=== PATIENT | female | born 1965 | race Caucasian/White ===

== ENCOUNTER 2016-11-28 12:30 | Inpatient (IN) ==
[2016-11-28] MEDS ORDERED: MORPHINE 2 MG/1 ML SYRINGE IV STA (13:33)
[2016-11-28] MEDS ORDERED: SODIUM CHLORIDE 0.9% 1,000 ML IV STA (13:33)
[2016-11-28] MEDS ORDERED: MORPHINE 2 MG/1 ML SYRINGE ONE ×2 (13:53→15:45)
[2016-11-28] MEDS ORDERED: ONDANSETRON 4 MG/2 ML VIAL ONE (13:53)
[2016-11-28 13:58] LABS: Basophils % 0.4 % (0.0-0.8); Eosinophils # 0.1 10*3/uL (0.0-0.87); Eosinophils % 1.3 % (0.00-10.9); Hematocrit 45.2 VOL% (35.7-47.0); Immature Granulocytes % 0.3 %; Immature Granulocytes Absolute 0.03 #; Lymphocytes # 1.9 10*3/uL (1.4-4.0); Lymphocytes % 21.5 % (21.3-54.2); Mean Corpuscular HGB Conc 35.4 GM/DL (32-36); Mean Corpuscular Hemoglobin 32 PG (27-34); Mean Corpuscular Volume 91.3 FL (87-102); Mean Platelet Volume 10.6 FL (9.6-12.0); Monocytes # 0.6 10*3/uL (0.11-0.8); Monocytes % 7.2 % (1.7-12.7); Neutrophils # 6.2 10*3/uL (1.4-7.4); Neutrophils % 69.3 % (38.7-73.9); Platelet Count 185 T/CUMM (130-400); Red Blood Count 4.95 MC/CUMM (3.8-5.5); Red Cell Distribution Width 12.1 % (9.3-17.3)
[2016-11-28] MEDS ORDERED: ONDANSETRON 4 MG/2 ML VIAL IV STA (14:06)
[2016-11-28 14:26] LABS: Alanine Aminotransferase 51 U/L (13-56); Albumin 3.7 G/DL (3.4-5.0); Alkaline Phosphatase 77 U/L (45-117); Aspartate Amino Transferase 50 U/L (0-37); Bilirubin,Total < 0.39 MG/DL (0.2-1.0); Blood Urea Nitrogen 6 MG/DL (7-18); Calcium 9.8 MG/DL (8.5-10.1); Glucose 80 MG/DL (74-106); Potassium 4.7 MMOL/L (3.5-5.1); Sodium 136 MMOL/L (136-145); Total Protein 8.2 G/DL (6.4-8.3)
[2016-11-28] MEDS ORDERED: PIPERACILLIN/TAZOBACTAM 3,375 MG in SODIUM CHLORIDE 0.9% 100 ML IV STA (15:49)
[2016-11-28] MEDS ORDERED: VANCOMYCIN INJ 1,000 MG in SODIUM CHLORIDE 0.9% 250 ML IV STA (15:49)
[2016-11-28] MEDS ORDERED: VANCOMYCIN 1,000 MG VIAL ONE (15:57)
[2016-11-28] MEDS ORDERED: PIPERACILLIN/TAZOBACTAM 3,375 MG VIAL IV ONE (17:24)
[2016-11-28] MEDS ORDERED: HYDROmorphone 2 MG/1 ML VIAL ONE (17:49)
[2016-11-28] MEDS: HYDROmorphone 2 MG/1 ML VIAL IV PRN (17:52)
[2016-11-28] MEDS: DEXTROSE 5% NACL 0.45% 1,000 ML IV SCH (19:15)
[2016-11-28] MEDS: metroNIDAZOLE INJ 500 MG in PREMIX 1 EACH IV SCH (19:16)
[2016-11-29] MEDS: ONDANSETRON 4 MG/2 ML VIAL IV PRN ×2 (03:00→08:50)
[2016-11-29] MEDS: DEXTROSE 5% NACL 0.45% 1,000 ML IV SCH (03:21)
[2016-11-29] MEDS: metroNIDAZOLE INJ 500 MG in PREMIX 1 EACH IV SCH ×3 (03:21→17:40)
[2016-11-29] MEDS: PIPERACILLIN/TAZOBACTAM 3,375 MG in SODIUM CHLORIDE 0.9% 100 ML IV SCH ×3 (03:30→18:12)
[2016-11-29 07:48] LABS: Basophils % 0.7 % (0.0-0.8); Eosinophils # 0.1 10*3/uL (0.0-0.87); Eosinophils % 1.9 % (0.00-10.9); Hematocrit 40.6 VOL% (35.7-47.0); Hemoglobin 14.2 GM/DL (12.0-16.0); Immature Granulocytes % 0.2 %; Immature Granulocytes Absolute 0.01 #; Lymphocytes # 1.7 10*3/uL (1.4-4.0); Lymphocytes % 29.7 % (21.3-54.2); Mean Corpuscular Hemoglobin 32 PG (27-34); Mean Corpuscular Volume 92.7 FL (87-102); Mean Platelet Volume 10.9 FL (9.6-12.0); Monocytes # 0.5 10*3/uL (0.11-0.8); Monocytes % 8.9 % (1.7-12.7); Neutrophils # 3.4 10*3/uL (1.4-7.4); Neutrophils % 58.6 % (38.7-73.9); Platelet Count 151 T/CUMM (130-400); Red Blood Count 4.38 MC/CUMM (3.8-5.5); Red Cell Distribution Width 12.1 % (9.3-17.3); White Blood Count 5.9 T/CUMM (4-12)
[2016-11-29 08:19] LABS: Magnesium 1.6 MG/DL (1.8-2.4); Osmolality,Calculated 273.5 MOS/KG (273-304)
[2016-11-29] MEDS: HYDROmorphone 2 MG/1 ML VIAL IV PRN ×2 (08:47→22:21)
[2016-11-29 18:26] LABS: Apearance,Urine Slightly Hazy (Clear); Bilirubin,Urine Negative (Negative); Blood, Urine Negative (Negative); Glucose,Urine (UA) Negative (Negative); Ketones,Urine 20 mg/dL (Negative); Mucus,Urine Occasional /LPF (Occasional); Nitrite,Urine Negative (Negative); Protein,Urine Negative; RBC,Urine 1 /HPF (0-4); Squamous Epithelial Cell,Urine Occasional /HPF (0-10); Urine Color Yellow (Yellow); Urine Urobilinogen < 2.0 EU/DL (0.2-1.0); WBC,Urine 55 /HPF (0-6)
[2016-11-29] MEDS: PARoxetine 20 MG TABLET PO SCH (21:57)
[2016-11-30] MEDS: DEXTROSE 5% NACL 0.45% 1,000 ML IV SCH ×4 (01:12→16:33)
[2016-11-30] MEDS: metroNIDAZOLE INJ 500 MG in PREMIX 1 EACH IV SCH ×3 (01:37→18:10)
[2016-11-30] MEDS: PIPERACILLIN/TAZOBACTAM 3,375 MG in SODIUM CHLORIDE 0.9% 100 ML IV SCH ×3 (03:00→20:52)
[2016-11-30 03:45] LABS: Basophils % 0.4 % (0.0-0.8); Eosinophils % 0.7 % (0.00-10.9); Hematocrit 38.6 VOL% (35.7-47.0); Hemoglobin 13.2 GM/DL (12.0-16.0); Immature Granulocytes % 0.4 %; Immature Granulocytes Absolute 0.02 #; Lymphocytes # 1.1 10*3/uL (1.4-4.0); Mean Corpuscular HGB Conc 34.2 GM/DL (32-36); Mean Corpuscular Hemoglobin 32 PG (27-34); Mean Corpuscular Volume 92.8 FL (87-102); Mean Platelet Volume 11.4 FL (9.6-12.0); Monocytes # 0.5 10*3/uL (0.11-0.8); Monocytes % 9.6 % (1.7-12.7); Neutrophils # 3.9 10*3/uL (1.4-7.4); Neutrophils % 69.9 % (38.7-73.9); Platelet Count 146 T/CUMM (130-400); Red Blood Count 4.16 MC/CUMM (3.8-5.5); Red Cell Distribution Width 12.2 % (9.3-17.3); White Blood Count 5.5 T/CUMM (4-12)
[2016-11-30 04:00] LABS: Calcium 9.1 MG/DL (8.5-10.1); Magnesium 1.7 MG/DL (1.8-2.4); Osmolality,Calculated 275.5 MOS/KG (273-304); Potassium 3.6 MMOL/L (3.5-5.1)
[2016-11-30 04:12] LABS: Free T4 (Free Thyroxine) 1.22 NG/DL (0.76-1.46); Risk Ratio 3.09; Thyroid Stimulating Hormone 5.87 uIU/ml (0.358-3.74); VLDL CHOLESTEROL 10.2 MG/DL
[2016-11-30] MEDS ORDERED: MAGNESIUM SULF RIDER 1 GM in PREMIX 1 EACH IV ONE (09:15)
[2016-11-30] MEDS: PARoxetine 20 MG TABLET PO SCH (12:38)
[2016-12-01] MEDS: metroNIDAZOLE INJ 500 MG in PREMIX 1 EACH IV SCH ×3 (03:08→17:44)
[2016-12-01 03:42] LABS: Basophils % 0.6 % (0.0-0.8); Eosinophils # 0.1 10*3/uL (0.0-0.87); Eosinophils % 2.6 % (0.00-10.9); Hematocrit 40.4 VOL% (35.7-47.0); Immature Granulocytes % 0.2 %; Immature Granulocytes Absolute 0.01 #; Lymphocytes # 1.6 10*3/uL (1.4-4.0); Lymphocytes % 32.6 % (21.3-54.2); Mean Corpuscular HGB Conc 34.7 GM/DL (32-36); Mean Corpuscular Hemoglobin 32 PG (27-34); Mean Corpuscular Volume 92.4 FL (87-102); Mean Platelet Volume 11.4 FL (9.6-12.0); Monocytes # 0.5 10*3/uL (0.11-0.8); Monocytes % 9.6 % (1.7-12.7); Neutrophils # 2.7 10*3/uL (1.4-7.4); Neutrophils % 54.4 % (38.7-73.9); Platelet Count 164 T/CUMM (130-400); Red Blood Count 4.37 MC/CUMM (3.8-5.5); Red Cell Distribution Width 12.3 % (9.3-17.3)
[2016-12-01] MEDS: DEXTROSE 5% NACL 0.45% 1,000 ML IV SCH ×3 (03:54→15:19)
[2016-12-01 04:20] LABS: Calcium 8.9 MG/DL (8.5-10.1); Magnesium 1.7 MG/DL (1.8-2.4); Potassium 3.5 MMOL/L (3.5-5.1)
[2016-12-01] MEDS: PIPERACILLIN/TAZOBACTAM 3,375 MG in SODIUM CHLORIDE 0.9% 100 ML IV SCH ×3 (05:38→21:00)
[2016-12-01] MEDS: PARoxetine 20 MG TABLET PO SCH (11:33)
[2016-12-01] MEDS: MAGNESIUM OXIDE 400 MG TABLET PO SCH (12:55)
[2016-12-01] MEDS ORDERED: BISOPROLOL 5 MG TABLET PO SCH (13:00)
[2016-12-01] MEDS: BISOPROLOL/HCTZ 5-6.25 MG TABLET PO SCH (21:01)
[2016-12-02] MEDS: DEXTROSE 5% NACL 0.45% 1,000 ML IV SCH (00:14)
[2016-12-02] MEDS: metroNIDAZOLE INJ 500 MG in PREMIX 1 EACH IV SCH ×2 (01:50→09:38)
[2016-12-02] MEDS: PIPERACILLIN/TAZOBACTAM 3,375 MG in SODIUM CHLORIDE 0.9% 100 ML IV SCH ×2 (03:34→11:07)
[2016-12-02] MEDS ORDERED: DEXTROSE 5% NACL 0.45% 1,000 ML IV SCH ×2 (04:30→09:30)
[2016-12-02 04:59] LABS: Basophils % 0.6 % (0.0-0.8); Eosinophils # 0.1 10*3/uL (0.0-0.87); Eosinophils % 2.2 % (0.00-10.9); Hematocrit 41.8 VOL% (35.7-47.0); Hemoglobin 14.5 GM/DL (12.0-16.0); Immature Granulocytes % 0.4 %; Immature Granulocytes Absolute 0.02 #; Lymphocytes # 1.9 10*3/uL (1.4-4.0); Lymphocytes % 36.8 % (21.3-54.2); Mean Corpuscular HGB Conc 34.7 GM/DL (32-36); Mean Corpuscular Hemoglobin 32 PG (27-34); Mean Corpuscular Volume 92.3 FL (87-102); Mean Platelet Volume 11.4 FL (9.6-12.0); Monocytes # 0.6 10*3/uL (0.11-0.8); Monocytes % 10.9 % (1.7-12.7); Neutrophils # 2.5 10*3/uL (1.4-7.4); Neutrophils % 49.1 % (38.7-73.9); Platelet Count 189 T/CUMM (130-400); Red Blood Count 4.53 MC/CUMM (3.8-5.5); Red Cell Distribution Width 12.4 % (9.3-17.3); White Blood Count 5.1 T/CUMM (4-12)
[2016-12-02 05:29] LABS: Calcium 9.5 MG/DL (8.5-10.1); Magnesium 1.7 MG/DL (1.8-2.4); Osmolality,Calculated 278.3 MOS/KG (273-304); Potassium 3.7 MMOL/L (3.5-5.1)
[2016-12-02] MEDS: MAGNESIUM OXIDE 400 MG TABLET PO SCH (08:10)
[2016-12-02] MEDS ORDERED: PARoxetine 20 MG TABLET PO SCH (12:00)
[2016-12-02] MEDS ORDERED: MAGNESIUM OXIDE 400 MG TABLET PO SCH (13:32)
[2016-12-02] MEDS: BISOPROLOL/HCTZ 5-6.25 MG TABLET PO SCH (21:07)
[2016-12-02] MEDS: CIPROFLOXACIN 500 MG TABLET PO SCH (21:07)
[2016-12-02] MEDS: metroNIDAZOLE 500 MG TABLET PO SCH (21:13)
[2016-12-03 05:36] LABS: Basophils % 0.6 % (0.0-0.8); Eosinophils # 0.1 10*3/uL (0.0-0.87); Eosinophils % 2.6 % (0.00-10.9); Hematocrit 42.6 VOL% (35.7-47.0); Immature Granulocytes % 0.2 %; Immature Granulocytes Absolute 0.01 #; Lymphocytes # 1.9 10*3/uL (1.4-4.0); Lymphocytes % 34.4 % (21.3-54.2); Mean Corpuscular HGB Conc 35.2 GM/DL (32-36); Mean Corpuscular Hemoglobin 32 PG (27-34); Mean Corpuscular Volume 91.6 FL (87-102); Mean Platelet Volume 11.8 FL (9.6-12.0); Monocytes # 0.6 10*3/uL (0.11-0.8); Monocytes % 11.3 % (1.7-12.7); Neutrophils # 2.7 10*3/uL (1.4-7.4); Neutrophils % 50.9 % (38.7-73.9); Platelet Count 171 T/CUMM (130-400); Red Blood Count 4.65 MC/CUMM (3.8-5.5); Red Cell Distribution Width 12.3 % (9.3-17.3); White Blood Count 5.4 T/CUMM (4-12)
[2016-12-03 06:07] LABS: Calcium 9.6 MG/DL (8.5-10.1); Magnesium 1.6 MG/DL (1.8-2.4); Osmolality,Calculated 280.1 MOS/KG (273-304); Potassium 3.6 MMOL/L (3.5-5.1)
[2016-12-03] MEDS: CIPROFLOXACIN 500 MG TABLET PO SCH (08:39)
[2016-12-03] MEDS: metroNIDAZOLE 500 MG TABLET PO SCH (08:39)
[2016-12-03 10:46] VITALS: BP 124/67
== END 2016-12-03 12:28 | disposition home or self-care (01) | DRG 392 ==
LOC: N.ED 12:30 → N.EDINP 16:27 → N.3E 17:55
PROVIDERS: ADMIT Surgery; ATTEND Specialist

== ENCOUNTER 2017-04-17 08:09 | Inpatient (IN) ==
[2017-04-15 13:59] LABS: Basophils % 0.3 % (0.0-0.8); Hematocrit 43.2 VOL% (35.7-47.0); Hemoglobin 15.1 GM/DL (12.0-16.0); Immature Granulocytes % 0.3 %; Immature Granulocytes Absolute 0.03 #; Lymphocytes # 1.1 10*3/uL (1.4-4.0); Lymphocytes % 13.1 % (21.3-54.2); Mean Corpuscular Hemoglobin 34 PG (27-34); Mean Corpuscular Volume 96.6 FL (87-102); Mean Platelet Volume 10.2 FL (9.6-12.0); Monocytes # 0.5 10*3/uL (0.11-0.8); Monocytes % 5.4 % (1.7-12.7); Neutrophils # 7.1 10*3/uL (1.4-7.4); Neutrophils % 80.9 % (38.7-73.9); Platelet Count 174 T/CUMM (130-400); Red Blood Count 4.47 MC/CUMM (3.8-5.5); Red Cell Distribution Width 12.7 % (9.3-17.3); White Blood Count 8.7 T/CUMM (4-12)
[2017-04-15 14:33] LABS: Albumin 3.4 G/DL (3.4-5.0); Bilirubin,Total 0.7 MG/DL (0.2-1.0); Calcium 9.2 MG/DL (8.5-10.1); Osmolality,Calculated 272.8 MOS/KG (273-304); Potassium 3.9 MMOL/L (3.5-5.1)
[2017-04-17] MEDS ORDERED: ASPIRIN 325 MG TABLET PO STA (09:01)
[2017-04-17] MEDS ORDERED: NITROGLYCERIN SL 0.4 MG TABLET SL PRN (09:01)
[2017-04-17] MEDS ORDERED: ASPIRIN 325 MG TABLET ONE (09:25)
[2017-04-17] MEDS ORDERED: NITROGLYCERIN SL 0.4 MG TABLET SL ONE (09:25)
[2017-04-17 09:30] LABS: Basophils # 0.1 10*3/uL (0.0-0.2); Basophils % 0.8 % (0.0-0.8); Eosinophils % 0.4 % (0.00-10.9); Hematocrit 45.6 VOL% (35.7-47.0); Hemoglobin 15.7 GM/DL (12.0-16.0); Immature Granulocytes % 0.5 %; Immature Granulocytes Absolute 0.04 #; Lymphocytes # 1.6 10*3/uL (1.4-4.0); Lymphocytes % 21.3 % (21.3-54.2); Mean Corpuscular HGB Conc 34.4 GM/DL (32-36); Mean Corpuscular Hemoglobin 34 PG (27-34); Mean Corpuscular Volume 97.9 FL (87-102); Mean Platelet Volume 10.4 FL (9.6-12.0); Monocytes # 0.4 10*3/uL (0.11-0.8); Monocytes % 5.5 % (1.7-12.7); Neutrophils # 5.4 10*3/uL (1.4-7.4); Neutrophils % 71.5 % (38.7-73.9); Platelet Count 182 T/CUMM (130-400); Red Blood Count 4.66 MC/CUMM (3.8-5.5); Red Cell Distribution Width 12.5 % (9.3-17.3); White Blood Count 7.5 T/CUMM (4-12)
[2017-04-17 09:54] LABS: Calcium 9.2 MG/DL (8.5-10.1); Osmolality,Calculated 270.1 MOS/KG (273-304); Potassium 3.7 MMOL/L (3.5-5.1)
[2017-04-17 09:56] LABS: Apearance,Urine CLEAR (Clear); Bacteria,Urine Occasional /HPF (Few); Bilirubin,Urine Negative (Negative); Blood, Urine Negative (Negative); Glucose,Urine (UA) Negative (Negative); Ketones,Urine Negative (Negative); Mucus,Urine Occasional /LPF (Occasional); Nitrite,Urine Negative (Negative); Protein,Urine Negative; RBC,Urine 3 /HPF (0-4); Squamous Epithelial Cell,Urine Occasional /HPF (0-10); Urine Color Yellow (Yellow); Urine Specific Gravity 1.012 (1.001-1.035); Urine Urobilinogen < 2.0 EU/DL (0.2-1.0); WBC,Urine 9 /HPF (0-6)
[2017-04-17] MEDS ORDERED: ACETAMINOPHEN 325 MG TABLET PO PRN (10:58)
[2017-04-17] MEDS ORDERED: MORPHINE 2 MG/1 ML SYRINGE IV PRN (10:58)
[2017-04-17] MEDS ORDERED: SODIUM CHLORIDE 0.9% 1,000 ML IV SCH (11:00)
[2017-04-17] MEDS ORDERED: ALPRAZolam 0.5 MG TABLET PO PRN (12:49)
[2017-04-17] MEDS ORDERED: PARoxetine 20 MG TABLET PO SCH (13:00)
[2017-04-17 13:37] LABS: Troponin I Only < 0.015 NG/ML (0.00-0.045)
[2017-04-17] MEDS: PARoxetine 20 MG TABLET PO SCH (13:41)
[2017-04-17] MEDS: ALPRAZolam 0.5 MG TABLET PO PRN (13:52)
[2017-04-17] MEDS: ENOXAPARIN 40 MG/0.4 ML SYRINGE SUBCUT SCH (13:52)
[2017-04-17 17:27] LABS: Troponin I Only < 0.015 NG/ML (0.00-0.045)
[2017-04-17] MEDS ORDERED: BISOPROLOL 5 MG TABLET PO SCH (21:00)
[2017-04-17] MEDS ORDERED: BISOPROLOL/HCTZ 5-6.25 MG TABLET PO SCH (21:00)
[2017-04-17 21:11] LABS: Troponin I Only < 0.015 NG/ML (0.00-0.045)
[2017-04-17] MEDS: BISOPROLOL/HCTZ 5-6.25 MG TABLET PO SCH (22:21)
[2017-04-17] MEDS: DOCUSATE SODIUM 100 MG CAPSULE PO SCH (22:25)
[2017-04-18] MEDS: traZODone 50 MG TABLET PO SCH ×2 (00:01→20:58)
[2017-04-18] MEDS: ERYTHROMYCIN BASE 250 MG TABLET PO SCH ×3 (00:10→22:05)
[2017-04-18] MEDS: metroNIDAZOLE 500 MG TABLET PO SCH ×3 (00:11→22:02)
[2017-04-18 06:58] LABS: Risk Ratio 3.06; VLDL CHOLESTEROL 24.4 MG/DL
[2017-04-18] MEDS ORDERED: BISACODYL 5 MG TABLET PO ONE (09:56)
[2017-04-18] MEDS ORDERED: REGADENOSON 0.4 MG/5 ML SYRINGE IV ONE (10:19)
[2017-04-18] MEDS: PANTOPRAZOLE 40 MG TABLET PO SCH (10:34)
[2017-04-18] MEDS: PARoxetine 20 MG TABLET PO SCH (10:34)
[2017-04-18] MEDS: ASPIRIN EC 81 MG TABLET PO SCH (10:34)
[2017-04-18] MEDS: DOCUSATE SODIUM 100 MG CAPSULE PO SCH ×2 (10:34→20:58)
[2017-04-18] MEDS: ENOXAPARIN 40 MG/0.4 ML SYRINGE SUBCUT SCH (12:44)
[2017-04-18] MEDS ORDERED: POLYETHYLENE GLYCOL POWDER 255 GM BOTTLE PO ONE (15:00)
[2017-04-18] MEDS: ALPRAZolam 0.5 MG TABLET PO PRN (18:25)
[2017-04-18] MEDS: ATORVASTATIN 10 MG TABLET PO SCH (20:58)
[2017-04-18] MEDS: BISOPROLOL/HCTZ 5-6.25 MG TABLET PO SCH (20:59)
[2017-04-19] MEDS ORDERED: ERTAPENEM 1,000 MG in SODIUM CHLORIDE 0.9% 100 ML IV ONE ×2 (06:00→09:30)
[2017-04-19] MEDS ORDERED: ALVIMOPAN 12 MG CAPSULE PO ONE ×2 (06:00→10:00)
[2017-04-19 06:28] LABS: Basophils % 0.6 % (0.0-0.8); Eosinophils % 0.6 % (0.00-10.9); Hematocrit 45.6 VOL% (35.7-47.0); Hemoglobin 15.4 GM/DL (12.0-16.0); Immature Granulocytes % 0.4 %; Immature Granulocytes Absolute 0.03 #; Lymphocytes # 1.9 10*3/uL (1.4-4.0); Lymphocytes % 27.6 % (21.3-54.2); Mean Corpuscular HGB Conc 33.8 GM/DL (32-36); Mean Corpuscular Hemoglobin 33 PG (27-34); Mean Corpuscular Volume 98.3 FL (87-102); Mean Platelet Volume 10.7 FL (9.6-12.0); Monocytes # 0.4 10*3/uL (0.11-0.8); Neutrophils # 4.4 10*3/uL (1.4-7.4); Neutrophils % 64.8 % (38.7-73.9); Platelet Count 175 T/CUMM (130-400); Red Blood Count 4.64 MC/CUMM (3.8-5.5); Red Cell Distribution Width 12.5 % (9.3-17.3); White Blood Count 6.8 T/CUMM (4-12)
[2017-04-19 07:11] LABS: Albumin 3.8 G/DL (3.4-5.0); Bilirubin,Direct 0.46 MG/DL (0.0-0.20); Bilirubin,Total 1.5 MG/DL (0.2-1.0); Calcium 9.1 MG/DL (8.5-10.1); Osmolality,Calculated 271.8 MOS/KG (273-304); Potassium 3.8 MMOL/L (3.5-5.1); Total Protein 8.3 G/DL (6.4-8.3)
[2017-04-19] MEDS: DOCUSATE SODIUM 100 MG CAPSULE PO SCH (07:59)
[2017-04-19] MEDS: ASPIRIN EC 81 MG TABLET PO SCH (07:59)
[2017-04-19] MEDS: PARoxetine 20 MG TABLET PO SCH ×2 (07:59→21:03)
[2017-04-19] MEDS: PANTOPRAZOLE 40 MG TABLET PO SCH (08:00)
[2017-04-19] MEDS ORDERED: ALVIMOPAN 12 MG CAPSULE ONE (09:42)
[2017-04-19] MEDS ORDERED: TISSUE ADHESIVE 1 EACH APPLICATOR TOP ONE (11:40)
[2017-04-19] MEDS: ENOXAPARIN 40 MG/0.4 ML SYRINGE SUBCUT SCH (12:00)
[2017-04-19] MEDS ORDERED: SUGAMMADEX 200 MG/2 ML VIAL IV ONE (14:40)
[2017-04-19] MEDS ORDERED: ALBUTEROL/IPRATROPIUM 3 ML NEB RESP TX ONE (14:47)
[2017-04-19] MEDS ORDERED: LACTATED RINGERS 1,000 ML IV ONE (14:55)
[2017-04-19] MEDS ORDERED: ALBUMIN 5% 25 GM in PREMIX 1 EACH IV ONE (14:55)
[2017-04-19] MEDS ORDERED: PHENYLEPHRINE DRIP 0 MG/0 ML PREMIX IV ONE (14:55)
[2017-04-19] MEDS ORDERED: MIDAZOLAM 2 MG/2 ML VIAL ONE (15:00)
[2017-04-19] MEDS ORDERED: fentaNYL 100 MCG/2 ML VIAL ONE (15:00)
[2017-04-19] MEDS ORDERED: PROPOFOL 500 MG/50 ML BOTTLE IV ONE (15:00)
[2017-04-19] MEDS ORDERED: ROCURONIUM 100 MG/10 ML VIAL IV ONE (15:00)
[2017-04-19] MEDS ORDERED: SEVOFLURANE 1 UNIT/15 MINUTE INH ONE (15:01)
[2017-04-19] MEDS ORDERED: ONDANSETRON 4 MG/2 ML VIAL ONE ×2 (15:01→15:28)
[2017-04-19] MEDS ORDERED: ALBUMIN 5% 12.5 GM/250 ML VIAL IV ONE (15:02)
[2017-04-19 15:09] LABS: Apearance,Urine CLEAR (Clear); Bacteria,Urine Occasional /HPF (Few); Bilirubin,Urine Negative (Negative); Blood, Urine Negative (Negative); Glucose,Urine (UA) Negative (Negative); Ketones,Urine Negative (Negative); Mucus,Urine Occasional /LPF (Occasional); Nitrite,Urine Negative (Negative); Protein,Urine Negative; RBC,Urine 1 /HPF (0-4); Squamous Epithelial Cell,Urine Occasional /HPF (0-10); Urine Color Amber (Yellow); Urine Specific Gravity 1.014 (1.001-1.035); Urine Urobilinogen < 2.0 EU/DL (0.2-1.0); WBC,Urine <1 /HPF (0-6)
[2017-04-19 15:11] LABS: ABG Base Excess -3.6 MMOL/L (-2.5-2.5); ABG HCO3 22.7 MMOL/L (20-26); ABG Oxygen Saturation 96.3 % (95-100); ABG PCO2 45.8 MM HG (35-48); ABG PH 7.313 (7.35-7.45); ABG TCO2 24.1 MMOL/L (23-27); Allen Test Positive; Pt O2 Delivery Device Other
[2017-04-19 15:25] LABS: ABG Base Excess -4.4 MMOL/L (-2.5-2.5); ABG HCO3 20.8 MMOL/L (20-26); ABG Oxygen Saturation 97.7 % (95-100); ABG PCO2 44.8 MM HG (35-48); ABG TCO2 19.9 MMOL/L (23-27); Glucose Heart Surgery 167 MG/DL (74-106); Hematocrit Heart Surgery 35.5 PERCENT (37-47); Hemoglobin Heart Surgery 11.5 G/DL (12.0-16.0); Potassium Heart/CVR 3.2 MMOL/L (3.5-5.1)
[2017-04-19] MEDS ORDERED: HYDROmorphone 2 MG/1 ML VIAL ONE (15:28)
[2017-04-19] MEDS: HYDROmorphone 2 MG/1 ML VIAL IV PRN ×2 (15:30→15:40)
[2017-04-19] MEDS ORDERED: ROPIVACAINE 0.5% 30 ML VIAL ONE (16:02)
[2017-04-19] MEDS ORDERED: ONDANSETRON 4 MG/2 ML VIAL IV PRN (16:07)
[2017-04-19 16:10] LABS: Basophils % 0.4 % (0.0-0.8); Eosinophils % 0.1 % (0.00-10.9); Hematocrit 33.5 VOL% (35.7-47.0); Hemoglobin 11.2 GM/DL (12.0-16.0); Immature Granulocytes % 0.4 %; Immature Granulocytes Absolute 0.03 #; Lymphocytes # 1.1 10*3/uL (1.4-4.0); Lymphocytes % 13.1 % (21.3-54.2); Mean Corpuscular HGB Conc 33.4 GM/DL (32-36); Mean Corpuscular Hemoglobin 34 PG (27-34); Mean Corpuscular Volume 100.9 FL (87-102); Monocytes # 0.4 10*3/uL (0.11-0.8); Monocytes % 4.7 % (1.7-12.7); Neutrophils # 6.6 10*3/uL (1.4-7.4); Neutrophils % 81.3 % (38.7-73.9); Platelet Count 131 T/CUMM (130-400); Red Blood Count 3.32 MC/CUMM (3.8-5.5); Red Cell Distribution Width 12.5 % (9.3-17.3); White Blood Count 8.1 T/CUMM (4-12)
[2017-04-19] MEDS ORDERED: MORPHINE PCA 30 MG/30 ML SYRINGE IV ONE (16:10)
[2017-04-19] MEDS ORDERED: NALOXONE 0.4 MG/ML VIAL IV PRN (16:15)
[2017-04-19] MEDS: MORPHINE PCA 30 MG/30 ML SYRINGE IV SCH (16:32)
[2017-04-19 16:33] LABS: Albumin 3.2 G/DL (3.4-5.0); Bilirubin,Total 1.3 MG/DL (0.2-1.0); Calcium 7.8 MG/DL (8.5-10.1); Total Protein 6.1 G/DL (6.4-8.3)
[2017-04-19 16:34] LABS: Osmolality,Calculated 278.5 MOS/KG (273-304); Potassium 3.2 MMOL/L (3.5-5.1)
[2017-04-19] MEDS ORDERED: POTASSIUM CHLORIDE RIDER 10 MEQ in PREMIX 1 EACH IV PRN (16:45)
[2017-04-19] MEDS: ONDANSETRON 4 MG/2 ML VIAL IV PRN (17:29)
[2017-04-19] MEDS: POTASSIUM CHLORIDE RIDER 20 MEQ in PREMIX 1 EACH IV PRN ×2 (17:45→19:45)
[2017-04-19 18:28] LABS: Basophils % 0.2 % (0.0-0.8); Hematocrit 32.1 VOL% (35.7-47.0); Hemoglobin 10.8 GM/DL (12.0-16.0); Immature Granulocytes % 0.3 %; Immature Granulocytes Absolute 0.03 #; Lymphocytes # 0.8 10*3/uL (1.4-4.0); Lymphocytes % 8.5 % (21.3-54.2); Mean Corpuscular HGB Conc 33.6 GM/DL (32-36); Mean Corpuscular Hemoglobin 34 PG (27-34); Mean Corpuscular Volume 101.3 FL (87-102); Mean Platelet Volume 11.3 FL (9.6-12.0); Monocytes # 0.5 10*3/uL (0.11-0.8); Monocytes % 5.7 % (1.7-12.7); Neutrophils % 85.3 % (38.7-73.9); Platelet Count 141 T/CUMM (130-400); Red Blood Count 3.17 MC/CUMM (3.8-5.5); Red Cell Distribution Width 12.6 % (9.3-17.3); White Blood Count 9.4 T/CUMM (4-12)
[2017-04-19] MEDS: BISOPROLOL/HCTZ 5-6.25 MG TABLET PO SCH (21:03)
[2017-04-19] MEDS: ALVIMOPAN 12 MG CAPSULE PO SCH (21:03)
[2017-04-19] MEDS: traZODone 50 MG TABLET PO SCH (21:05)
[2017-04-19] MEDS: ATORVASTATIN 10 MG TABLET PO SCH (21:06)
[2017-04-20] MEDS ORDERED: LACTATED RINGERS 1,000 ML IV ONE (02:05)
[2017-04-20] MEDS ORDERED: ALBUMIN 5% 25 GM in PREMIX 1 EACH IV ONE (03:14)
[2017-04-20] MEDS ORDERED: ALBUMIN 5% 12.5 GM in PREMIX 1 EACH IV ONE (03:30)
[2017-04-20 04:14] LABS: Basophils % 0.2 % (0.0-0.8); Hematocrit 29.1 VOL% (35.7-47.0); Hemoglobin 9.8 GM/DL (12.0-16.0); Immature Granulocytes % 0.4 %; Immature Granulocytes Absolute 0.04 #; Lymphocytes # 0.9 10*3/uL (1.4-4.0); Lymphocytes % 10.3 % (21.3-54.2); Mean Corpuscular HGB Conc 33.7 GM/DL (32-36); Mean Corpuscular Hemoglobin 34 PG (27-34); Mean Corpuscular Volume 101.7 FL (87-102); Mean Platelet Volume 10.8 FL (9.6-12.0); Monocytes # 0.5 10*3/uL (0.11-0.8); Monocytes % 5.8 % (1.7-12.7); Neutrophils # 7.6 10*3/uL (1.4-7.4); Neutrophils % 83.3 % (38.7-73.9); Platelet Count 130 T/CUMM (130-400); Red Blood Count 2.86 MC/CUMM (3.8-5.5); Red Cell Distribution Width 12.8 % (9.3-17.3); White Blood Count 9.1 T/CUMM (4-12)
[2017-04-20 04:35] LABS: Band Neutrophils 3 % (0-10); Giant Platelets Few; Hypochromasia 1+; Lymphocytes 13 % (20-55); Ovalocytes Slight; Platelet Estimate Normal; Segmented Neutrophils 81 % (50-85); Total Cells Counted 100
[2017-04-20 04:41] LABS: Calcium 7.7 MG/DL (8.5-10.1); Osmolality,Calculated 276.5 MOS/KG (273-304)
[2017-04-20] MEDS: MORPHINE PCA 30 MG/30 ML SYRINGE IV SCH (06:55)
[2017-04-20] MEDS ORDERED: MAGNESIUM SULF RIDER 2 GM in PREMIX 1 EACH IV PRN (07:09)
[2017-04-20] MEDS: PARoxetine 20 MG TABLET PO SCH ×2 (09:21→09:30)
[2017-04-20] MEDS: PANTOPRAZOLE 40 MG TABLET PO SCH (09:58)
[2017-04-20] MEDS: BISOPROLOL/HCTZ 5-6.25 MG TABLET PO SCH (09:58)
[2017-04-20] MEDS: ASPIRIN EC 81 MG TABLET PO SCH (09:58)
[2017-04-20] MEDS: ALVIMOPAN 12 MG CAPSULE PO SCH ×2 (09:58→20:14)
[2017-04-20] MEDS ORDERED: SODIUM CHLORIDE 0.9% 2,000 ML IV ONE (11:11)
[2017-04-20 11:46] LABS: Hematocrit 30.1 VOL% (35.7-47.0); Hemoglobin 9.8 GM/DL (12.0-16.0)
[2017-04-20] MEDS ORDERED: SODIUM CHLORIDE 0.9% 1,000 ML IV ONE ×2 (15:30→19:10)
[2017-04-20] MEDS: SODIUM CHLORIDE 0.9% 1,000 ML IV SCH (16:30)
[2017-04-20] MEDS: ATORVASTATIN 10 MG TABLET PO SCH (20:14)
[2017-04-20] MEDS: traZODone 50 MG TABLET PO SCH (20:14)
[2017-04-21] MEDS: SODIUM CHLORIDE 0.9% 1,000 ML IV SCH ×3 (00:05→17:30)
[2017-04-21 04:04] LABS: Basophils % 0.2 % (0.0-0.8); Eosinophils # 0.1 10*3/uL (0.0-0.87); Eosinophils % 0.5 % (0.00-10.9); Hematocrit 27.5 VOL% (35.7-47.0); Hemoglobin 8.9 GM/DL (12.0-16.0); Immature Granulocytes % 1.5 %; Immature Granulocytes Absolute 0.16 #; Lymphocytes # 1.7 10*3/uL (1.4-4.0); Lymphocytes % 15.7 % (21.3-54.2); Mean Corpuscular HGB Conc 32.4 GM/DL (32-36); Mean Corpuscular Hemoglobin 34 PG (27-34); Mean Platelet Volume 10.8 FL (9.6-12.0); Monocytes # 0.9 10*3/uL (0.11-0.8); Monocytes % 8.8 % (1.7-12.7); Neutrophils # 7.7 10*3/uL (1.4-7.4); Neutrophils % 73.3 % (38.7-73.9); Platelet Count 134 T/CUMM (130-400); Red Blood Count 2.62 MC/CUMM (3.8-5.5); Red Cell Distribution Width 13.2 % (9.3-17.3); White Blood Count 10.5 T/CUMM (4-12)
[2017-04-21 04:28] LABS: Calcium 7.1 MG/DL (8.5-10.1); Osmolality,Calculated 274.8 MOS/KG (273-304); Potassium 4.2 MMOL/L (3.5-5.1)
[2017-04-21] MEDS: MORPHINE PCA 30 MG/30 ML SYRINGE IV SCH ×4 (07:22→21:08)
[2017-04-21] MEDS: ASPIRIN EC 81 MG TABLET PO SCH (09:17)
[2017-04-21] MEDS: ALVIMOPAN 12 MG CAPSULE PO SCH (09:17)
[2017-04-21] MEDS: PARoxetine 20 MG TABLET PO SCH (09:17)
[2017-04-21] MEDS: BISOPROLOL/HCTZ 5-6.25 MG TABLET PO SCH ×2 (09:17→09:20)
[2017-04-21] MEDS: PANTOPRAZOLE 40 MG TABLET PO SCH (09:17)
[2017-04-21 14:50] LABS: Calcium 7.2 MG/DL (8.5-10.1); Osmolality,Calculated 274.8 MOS/KG (273-304); Potassium 4.1 MMOL/L (3.5-5.1)
[2017-04-21 16:02] LABS: Hematocrit 26.2 VOL% (35.7-47.0); Hemoglobin 8.3 GM/DL (12.0-16.0)
[2017-04-21] MEDS: ONDANSETRON 4 MG/2 ML VIAL IV PRN (18:57)
[2017-04-21] MEDS: traZODone 50 MG TABLET PO SCH (21:02)
[2017-04-21] MEDS: ATORVASTATIN 10 MG TABLET PO SCH (21:02)
[2017-04-21] MEDS: DOCUSATE SODIUM 100 MG CAPSULE PO SCH (21:02)
[2017-04-21] MEDS: ALPRAZolam 0.5 MG TABLET PO PRN (21:07)
[2017-04-22 05:06] LABS: Basophils % 0.2 % (0.0-0.8); Eosinophils # 0.1 10*3/uL (0.0-0.87); Eosinophils % 0.7 % (0.00-10.9); Hematocrit 25.8 VOL% (35.7-47.0); Hemoglobin 8.2 GM/DL (12.0-16.0); Immature Granulocytes % 1.7 %; Immature Granulocytes Absolute 0.15 #; Lymphocytes # 1.3 10*3/uL (1.4-4.0); Mean Corpuscular HGB Conc 31.8 GM/DL (32-36); Mean Corpuscular Hemoglobin 34 PG (27-34); Mean Corpuscular Volume 105.7 FL (87-102); Mean Platelet Volume 11.2 FL (9.6-12.0); Monocytes # 0.9 10*3/uL (0.11-0.8); Monocytes % 9.6 % (1.7-12.7); Neutrophils # 6.5 10*3/uL (1.4-7.4); Neutrophils % 72.8 % (38.7-73.9); Platelet Count 141 T/CUMM (130-400); Red Blood Count 2.44 MC/CUMM (3.8-5.5); Red Cell Distribution Width 12.9 % (9.3-17.3); White Blood Count 8.9 T/CUMM (4-12)
[2017-04-22 05:34] LABS: Calcium 7.6 MG/DL (8.5-10.1); Potassium 4.1 MMOL/L (3.5-5.1)
[2017-04-22 05:53] LABS: Anisocytosis 1+; Band Neutrophils 1 % (0-10); Eosinophils 1 % (0-10); Lymphocytes 12 % (20-55); Macrocytosis 3+; Platelet Estimate Normal; Segmented Neutrophils 81 % (50-85); Total Cells Counted 100
[2017-04-22] MEDS ORDERED: FUROSEMIDE 20 MG/2 ML VIAL IV ONE (07:24)
[2017-04-22] MEDS ORDERED: HYDROmorphone 2 MG/1 ML VIAL IV PRN (07:24)
[2017-04-22] MEDS ORDERED: PARoxetine 20 MG TABLET PO SCH (09:00)
[2017-04-22] MEDS: PARoxetine 20 MG TABLET PO SCH (09:31)
[2017-04-22] MEDS: DOCUSATE SODIUM 100 MG CAPSULE PO SCH ×2 (09:31→20:43)
[2017-04-22] MEDS: ASPIRIN EC 81 MG TABLET PO SCH (09:31)
[2017-04-22] MEDS: ENOXAPARIN 40 MG/0.4 ML SYRINGE SUBCUT SCH (09:32)
[2017-04-22] MEDS: KETOROLAC 15 MG/1 ML VIAL IV SCH ×3 (09:32→20:43)
[2017-04-22] MEDS: PANTOPRAZOLE 40 MG TABLET PO SCH (09:32)
[2017-04-22] MEDS: SODIUM CHLORIDE 0.9% 1,000 ML IV SCH (11:39)
[2017-04-22] MEDS: MORPHINE 2 MG/1 ML SYRINGE IV PRN (16:04)
[2017-04-22] MEDS: traZODone 50 MG TABLET PO SCH (20:43)
[2017-04-22] MEDS: ATORVASTATIN 10 MG TABLET PO SCH (20:43)
[2017-04-23] MEDS: KETOROLAC 15 MG/1 ML VIAL IV SCH ×4 (01:01→20:31)
[2017-04-23 04:05] LABS: Basophils % 0.4 % (0.0-0.8); Eosinophils # 0.1 10*3/uL (0.0-0.87); Eosinophils % 1.2 % (0.00-10.9); Hematocrit 24.1 VOL% (35.7-47.0); Immature Granulocytes % 1.8 %; Immature Granulocytes Absolute 0.09 #; Lymphocytes % 19.2 % (21.3-54.2); Mean Corpuscular HGB Conc 33.2 GM/DL (32-36); Mean Corpuscular Hemoglobin 33 PG (27-34); Mean Platelet Volume 10.5 FL (9.6-12.0); Monocytes # 0.5 10*3/uL (0.11-0.8); Monocytes % 9.2 % (1.7-12.7); Neutrophils # 3.4 10*3/uL (1.4-7.4); Neutrophils % 68.2 % (38.7-73.9); Platelet Count 146 T/CUMM (130-400); Red Blood Count 2.41 MC/CUMM (3.8-5.5); Red Cell Distribution Width 12.7 % (9.3-17.3)
[2017-04-23 04:32] LABS: Calcium 7.7 MG/DL (8.5-10.1); Osmolality,Calculated 275.7 MOS/KG (273-304); Potassium 3.5 MMOL/L (3.5-5.1)
[2017-04-23] MEDS: ONDANSETRON 4 MG/2 ML VIAL IV PRN ×2 (08:42→15:30)
[2017-04-23] MEDS: PARoxetine 20 MG TABLET PO SCH (08:43)
[2017-04-23] MEDS: PANTOPRAZOLE 40 MG TABLET PO SCH (08:43)
[2017-04-23] MEDS: DOCUSATE SODIUM 100 MG CAPSULE PO SCH ×2 (08:43→20:34)
[2017-04-23] MEDS: ENOXAPARIN 40 MG/0.4 ML SYRINGE SUBCUT SCH (08:43)
[2017-04-23] MEDS: ASPIRIN EC 81 MG TABLET PO SCH (08:43)
[2017-04-23] MEDS: MORPHINE 2 MG/1 ML SYRINGE IV PRN ×2 (12:52→18:05)
[2017-04-23] MEDS: POTASSIUM CHLORIDE 20 MEQ TABLET PO PRN ×2 (15:30→17:50)
[2017-04-23] MEDS: ATORVASTATIN 10 MG TABLET PO SCH (20:33)
[2017-04-23] MEDS: traZODone 50 MG TABLET PO SCH (20:34)
[2017-04-23] MEDS: hydrALAZINE 20 MG/1 ML VIAL IV PRN (20:39)
[2017-04-24] MEDS: KETOROLAC 15 MG/1 ML VIAL IV SCH ×4 (01:31→20:14)
[2017-04-24] MEDS: hydrALAZINE 20 MG/1 ML VIAL IV PRN ×2 (04:56→21:04)
[2017-04-24] MEDS: ASPIRIN EC 81 MG TABLET PO SCH (08:26)
[2017-04-24] MEDS: ENOXAPARIN 40 MG/0.4 ML SYRINGE SUBCUT SCH (08:26)
[2017-04-24] MEDS: PARoxetine 20 MG TABLET PO SCH (08:26)
[2017-04-24] MEDS: DOCUSATE SODIUM 100 MG CAPSULE PO SCH ×2 (08:27→20:14)
[2017-04-24] MEDS: ONDANSETRON 4 MG/2 ML VIAL IV PRN (08:35)
[2017-04-24] MEDS: PANTOPRAZOLE 40 MG TABLET PO SCH (08:36)
[2017-04-24 09:27] LABS: Basophils % 0.5 % (0.0-0.8); Eosinophils # 0.1 10*3/uL (0.0-0.87); Eosinophils % 0.8 % (0.00-10.9); Hematocrit 26.3 VOL% (35.7-47.0); Hemoglobin 8.9 GM/DL (12.0-16.0); Immature Granulocytes % 1.7 %; Immature Granulocytes Absolute 0.11 #; Lymphocytes # 1.1 10*3/uL (1.4-4.0); Mean Corpuscular HGB Conc 33.8 GM/DL (32-36); Mean Corpuscular Hemoglobin 34 PG (27-34); Mean Corpuscular Volume 99.6 FL (87-102); Mean Platelet Volume 10.9 FL (9.6-12.0); Monocytes # 0.6 10*3/uL (0.11-0.8); Monocytes % 9.7 % (1.7-12.7); Neutrophils # 4.6 10*3/uL (1.4-7.4); Neutrophils % 70.3 % (38.7-73.9); Platelet Count 212 T/CUMM (130-400); Red Blood Count 2.64 MC/CUMM (3.8-5.5); Red Cell Distribution Width 12.7 % (9.3-17.3); White Blood Count 6.6 T/CUMM (4-12)
[2017-04-24 09:57] LABS: Calcium 8.1 MG/DL (8.5-10.1); Osmolality,Calculated 279.3 MOS/KG (273-304); Potassium 3.6 MMOL/L (3.5-5.1)
[2017-04-24] MEDS: MORPHINE 2 MG/1 ML SYRINGE IV PRN (10:37)
[2017-04-24] MEDS ORDERED: oxyCODONE/ACETAMINOPHEN 5-325 MG TABLET PO PRN (12:10)
[2017-04-24] MEDS: traZODone 50 MG TABLET PO SCH (20:14)
[2017-04-24] MEDS: ATORVASTATIN 10 MG TABLET PO SCH (20:14)
[2017-04-25] MEDS: KETOROLAC 15 MG/1 ML VIAL IV SCH ×4 (01:25→22:02)
[2017-04-25 05:53] LABS: Basophils % 0.3 % (0.0-0.8); Eosinophils # 0.1 10*3/uL (0.0-0.87); Eosinophils % 1.1 % (0.00-10.9); Hemoglobin 8.3 GM/DL (12.0-16.0); Immature Granulocytes % 1.4 %; Immature Granulocytes Absolute 0.09 #; Lymphocytes % 16.5 % (21.3-54.2); Mean Corpuscular HGB Conc 34.6 GM/DL (32-36); Mean Corpuscular Hemoglobin 34 PG (27-34); Mean Corpuscular Volume 97.6 FL (87-102); Monocytes # 0.6 10*3/uL (0.11-0.8); Neutrophils # 4.5 10*3/uL (1.4-7.4); Neutrophils % 71.7 % (38.7-73.9); Platelet Count 232 T/CUMM (130-400); Red Blood Count 2.46 MC/CUMM (3.8-5.5); Red Cell Distribution Width 12.9 % (9.3-17.3); White Blood Count 6.2 T/CUMM (4-12)
[2017-04-25 06:34] LABS: Albumin 2.5 G/DL (3.4-5.0); Bilirubin,Total 0.6 MG/DL (0.2-1.0); Calcium 8.2 MG/DL (8.5-10.1); Osmolality,Calculated 274.7 MOS/KG (273-304); Potassium 3.4 MMOL/L (3.5-5.1); Total Protein 5.6 G/DL (6.4-8.3)
[2017-04-25] MEDS: PANTOPRAZOLE 40 MG TABLET PO SCH (08:49)
[2017-04-25] MEDS: oxyCODONE/ACETAMINOPHEN 5-325 MG TABLET PO PRN ×2 (08:49→17:55)
[2017-04-25] MEDS: ASPIRIN EC 81 MG TABLET PO SCH (08:50)
[2017-04-25] MEDS: BISOPROLOL/HCTZ 5-6.25 MG TABLET PO SCH (08:50)
[2017-04-25] MEDS: PARoxetine 20 MG TABLET PO SCH (08:51)
[2017-04-25] MEDS: SIMETHICONE CHEW 125 MG TABLET PO PRN ×2 (09:03→17:57)
[2017-04-25] MEDS: ONDANSETRON 4 MG/2 ML VIAL IV PRN (09:04)
[2017-04-25] MEDS: ENOXAPARIN 40 MG/0.4 ML SYRINGE SUBCUT SCH (09:10)
[2017-04-25] MEDS: DOCUSATE SODIUM 100 MG CAPSULE PO SCH ×2 (09:12→22:19)
[2017-04-25] MEDS: POTASSIUM CHLORIDE 20 MEQ TABLET PO PRN ×3 (11:42→16:22)
[2017-04-25] MEDS: ATORVASTATIN 10 MG TABLET PO SCH (22:02)
[2017-04-25] MEDS: traZODone 50 MG TABLET PO SCH (22:02)
[2017-04-25] MEDS ORDERED: BISOPROLOL 5 MG TABLET PO ONE (23:30)
[2017-04-26] MEDS: KETOROLAC 15 MG/1 ML VIAL IV SCH ×2 (03:46→09:45)
[2017-04-26 05:32] LABS: Basophils % 0.3 % (0.0-0.8); Eosinophils # 0.1 10*3/uL (0.0-0.87); Eosinophils % 1.2 % (0.00-10.9); Hemoglobin 8.2 GM/DL (12.0-16.0); Immature Granulocytes % 1.4 %; Immature Granulocytes Absolute 0.09 #; Lymphocytes % 14.5 % (21.3-54.2); Mean Corpuscular HGB Conc 34.2 GM/DL (32-36); Mean Corpuscular Hemoglobin 34 PG (27-34); Mean Platelet Volume 10.7 FL (9.6-12.0); Monocytes # 0.5 10*3/uL (0.11-0.8); Monocytes % 8.1 % (1.7-12.7); Neutrophils # 4.9 10*3/uL (1.4-7.4); Neutrophils % 74.5 % (38.7-73.9); Platelet Count 249 T/CUMM (130-400); Red Blood Count 2.45 MC/CUMM (3.8-5.5); Red Cell Distribution Width 12.9 % (9.3-17.3); White Blood Count 6.6 T/CUMM (4-12)
[2017-04-26 06:02] LABS: Calcium 8.2 MG/DL (8.5-10.1); Osmolality,Calculated 273.7 MOS/KG (273-304); Potassium 3.6 MMOL/L (3.5-5.1)
[2017-04-26] MEDS ORDERED: FUROSEMIDE 20 MG/2 ML VIAL IV ONE (09:06)
[2017-04-26] MEDS: PANTOPRAZOLE 40 MG TABLET PO SCH (09:35)
[2017-04-26] MEDS: ASPIRIN EC 81 MG TABLET PO SCH (09:35)
[2017-04-26] MEDS: oxyCODONE/ACETAMINOPHEN 5-325 MG TABLET PO PRN (09:35)
[2017-04-26] MEDS: POTASSIUM CHLORIDE 20 MEQ TABLET PO PRN (09:37)
[2017-04-26] MEDS: BISOPROLOL/HCTZ 5-6.25 MG TABLET PO SCH (09:38)
[2017-04-26] MEDS: PARoxetine 20 MG TABLET PO SCH (09:38)
[2017-04-26] MEDS: SIMETHICONE CHEW 125 MG TABLET PO PRN (09:39)
[2017-04-26] MEDS: ENOXAPARIN 40 MG/0.4 ML SYRINGE SUBCUT SCH (09:49)
[2017-04-26] MEDS: DOCUSATE SODIUM 100 MG CAPSULE PO SCH (09:53)
[2017-04-26 11:43] VITALS: BP 116/52
== END 2017-04-26 14:35 | disposition home health service (06) | DRG 330 ==
LOC: N.ED 08:09 → N.EDINP 08:09 → N.5E 12:29 → N.ICU 04-19 15:54 → N.3E 04-21 17:45
PROVIDERS: ADMIT Family Medicine; ATTEND Family Medicine